=== PATIENT | male | born 1970 | race Caucasian/White ===

== ENCOUNTER 2017-07-12 22:20 | Emergency (ER) | payer SELFPAY ==
[2017-07-12 23:35] LABS: HEMATOCRIT 39.4 % (42.0-54.0); HEMOGLOBIN 14.1 g/dL (13.5-17.5); LYMPHOCYTES 39.1 % (15-50); MCH 30.9 pg (26.0-34.0); MCHC 35.8 g/dL (31.0-37.0); MCV 86.2 fL (80.0-100.0); NEUTROPHILS 53.5 % (40-80); PLATELET COUNT 257 10x3/uL (130-400); RBC 4.57 10x6/uL (4.20-6.10); WBC 9.1 10x3/uL (4.8-10.8)
[2017-07-12 23:50] LABS: ALBUMIN 3.5 g/dL (3.4-5.0); ALKALINE PHOSPHATASE 75 U/L (46-116); ALT (SGPT) 16 U/L (10-68); CALC OSMOLALITY 278 mosm/kg (275-300); CALCIUM 8.6 mg/dL (8.5-10.1); CHLORIDE - SERUM 103 mmol/L (98-107); GLUCOSE 140 mg/dL (74-106); POTASSIUM - SERUM 3.2 mmol/L (3.5-5.1); PROTEIN - SERUM 6.6 g/dL (6.4-8.2); SODIUM 140 mmol/L (136-145); UREA NITROGEN 7 mg/dL (7-18); eGFR NON AFRICAN AMERICAN 85 mL/min (90-120)
[2017-07-12 23:56] LABS: CHOL - HDL RATIO 4.8 ratio (2.3-4.9); CHOLESTEROL, TOTAL 169 mg/dL (0-200); CKMB 0.4 U/L (0.0-3.6); CREATINE KINASE 62 UL (21-232); HDL CHOLESTEROL 35 mg/dL (32-96); LDL CHOLESTEROL 104 mg/dL (0-100); TRIGLYCERIDE 150 mg/dL (30-200); TROPONIN-I < 0.017 ng/mL (0.000-0.060)
== END 2017-07-13 01:05 | disposition home or self-care (01) ==
LOC: D.ER 22:20
PROVIDERS: Emergency Medicine
DX: R07.9 Chest pain, unspecified (principal); J44.9 Chronic obstructive pulmonary disease, unspecified; E87.6 Hypokalemia; F17.200 Nicotine dependence, unspecified, uncomplicated; R00.1 Bradycardia, unspecified

== ENCOUNTER 2018-06-10 21:16 | Emergency (ER) | payer SELFPAY ==
[~2018-06-10] VITALS: Ht 175.3 cm; Wt 68.2 kg
[2018-06-10 21:27] VITALS: Ht 175.3 cm; Wt 68.2 kg
[2018-06-10] MEDS ORDERED: VOLTAREN75 MG PO (22:45)
[2018-06-10 23:04] VITALS: BP 134/67
== END 2018-06-10 23:05 | disposition home or self-care (01) ==
LOC: D.ER 21:16
DX: M25.561 Pain in right knee (principal); F17.200 Nicotine dependence, unspecified, uncomplicated